=== PATIENT | male | born 1960 | race Caucasian/White ===

== ENCOUNTER → 2021-09-06 | Outpatient (CLI) | payer OTHER ==
[~2021-09-06] MED LIST: BENZ100A PO
[2021-09-06 17:14] LABS: BASOPHILS ABSOLUTE AUTO 0.03 K/mm3 (0.00-0.23); BASOPHILS PERCENT AUTO 1 % (0-2); EOSINOPHILS ABSOLUTE AUTO 0.09 K/mm3 (0.00-0.68); EOSINOPHILS PERCENT AUTO 2 % (0-6); Hematocrit 45.3 % (37.0-53.0); Hemoglobin 14.8 g/dL (13.5-17.5); IMMATURE GRAN ABSOLUTE AUTO 0.01 K/mm3 (0.00-0.10); IMMATURE GRAN PERCENT AUTO 0 % (0-1); LYMPHOCYTES ABSOLUTE AUTO 1.52 K/mm3 (0.84-5.20); LYMPHOCYTES PERCENT AUTO 40 % (21-46); MONOCYTES ABSOLUTE AUTO 0.52 K/mm3 (0.16-1.47); MONOCYTES PERCENT AUTO 14 % (4-13); Mean Corpuscular HGB 31.2 pg (26.0-34.0); Mean Corpuscular HGB Conc 32.7 g/dL (31.5-36.5); Mean Corpuscular Volume 95 fL (80-100); Mean Platelet Volume 12.1 fL (9.1-12.4); NEUTROPHILS ABSOLUTE AUTO 1.66 K/mm3 (1.96-9.15); NEUTROPHILS PERCENT AUTO 43 % (41-73); Platelet Count 184 K/mm3 (150-400); RDW Coefficient Variation 12.6 % (11.7-14.2); RDW Standard Deviation 44.5 fL (35.1-46.3); Red Blood Cell Count 4.75 M/mm3 (4.30-5.90); White Blood Cell Count 3.83 K/mm3 (4.00-11.30)
[2021-09-06 17:21] LABS: Alanine Aminotransfer (ALT/SGP 131 U/L (12-78); Albumin, Blood 3.9 g/dL (3.4-5.0); Alk Phos 80 U/L (50-136); Anion Gap 4 mmol/L (6-16); Aspartate Aminotrans (AST/SGOT 73 U/L (12-37); Bilirubin, Total 0.4 mg/dL (0.1-1.0); Blood Urea Nitrogen 19 mg/dL (8-24); CHOL/HDL RATIO 3.3; CO2, Blood 29 mmol/L (21-32); Calcium, Blood 8.9 mg/dL (8.5-10.1); Chloride, Blood 107 mmol/L (98-108); Cholesterol 173 mg/dL (50-200); Ferritin, Serum 133 ng/mL (26-388); Globulin, Blood 3.8 g/dL (2.2-4.0); Glucose, Blood 86 mg/dL (70-99); HDL Cholesterol 53 mg/dL (>39); Iron Serum 142 ug/dL (65-175); LDL/HDL RATIO 1.8; Low Density Lipoprotein Chol 95 mg/dL (0-110); Percent Saturation 42.4 % (20.0-50.0); Potassium, Blood 4.6 mmol/L (3.5-5.5); Prostate Specific Antigen 0.893 ng/mL (0.000-4.000); Sodium, Blood 140 mmol/L (136-145); Total Iron Binding Capacity 335 ug/dL (250-450); Total Protein, Blood 7.7 g/dL (6.4-8.2); Triglycerides 123 mg/dL (30-160); Very Low Density Lipoprot Chol 24 mg/dL (6-32)
[2021-09-06 17:22] LABS: International Normalized Ratio 1.01; Prothrombin Time Results 10.6 Sec (9.7-11.5)
[2021-09-06 17:24] LABS: Bun/Creatinine Ratio 27.7 (12.0-20.0); Creatinine, Blood 0.69 mg/dL (0.60-1.20); Glomerular Filtration Rate 105 (60-)
[2021-09-07 08:12] LABS: HBSAG SCREEN Negative (Negative); HEP B CORE AB, TOT Negative (Negative); HIV AB/P24 AG SCREEN Non Reactive (Non Reactive)
[2021-09-08 15:10] LABS: HCV LOG10 4.932 (.); HEPATITIS C QUANTITATION 85500 IU/mL (.)
[2021-09-09 13:07] LABS: HCV LOG10 4.932 (.); HEPATITIS C GENOTYPE 4 (.); HEPATITIS C QUANTITATION 85500 IU/mL (.)
== END | disposition home or self-care (01) ==
LOC: LAB SHORT 09:00
PROVIDERS: Family Medicine
DX: Z12.5 Encounter for screening for malignant neoplasm of prostate (principal); B18.2 Chronic viral hepatitis C; Z72.0 Tobacco use
CPT/HCPCS: 80053; 80061; 82728; 83540; 83550; 84443; 85025; 85610; 86317; 86704; 86708; 87340; 87389; 87522; 87902; G0103